=== PATIENT | male | born 1995 | race Caucasian/White ===

== ENCOUNTER 2022-06-20 18:50 | Emergency (ER) | payer OTHER ==
[~2022-06-20] VITALS: Ht 177.8 cm; Wt 94.3 kg
[2022-06-20] MEDS ORDERED: PROPOFOL DRIP 100 ML IV ONE (19:23)
[2022-06-20 19:37] VITALS: BP_SYST 152
--- NOTE | 2022-06-20 19:44 | NUR ---
PT REQUESTED WAIT IN FRONT OF ER.
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
[2022-06-20] MEDS ORDERED: KETOROLAC TROMETHAMINE 30 MG VIAL IM ONE (21:45)
--- NOTE | 2022-06-20 22:52 | NUR ---
Patient to ER bed HB1 to gown for evaluation. Side rails up. Report given to LISA GUERRERO.
[2022-06-20] MEDS ORDERED: IBUPROFEN 600 MG TABLET PO ONE (23:15)
[2022-06-20] MEDS ORDERED: ACETAMINOPHEN 500 MG TABLET PO ONE (23:15)
[2022-06-20] MEDS ORDERED: ACET-2634 PO (23:15)
[2022-06-20 23:34] VITALS: BP_SYST 123
== END 2022-06-20 23:27 | disposition home or self-care (01) ==
LOC: SED 18:50
DX: M25.511 Pain in right shoulder (principal); M25.551 Pain in right hip; Z79.899 Other long term (current) drug therapy; V49.40XA Driver injured in collision with unspecified motor vehicles in traffic accident, initial encounter; Y93.89 Activity, other specified; Y92.89 Other specified places as the place of occurrence of the external cause; Y99.8 Other external cause status
CPT/HCPCS: 99284; 70450; 71045; 73060; 73090; 76376; 96372; J1885; J2704